=== PATIENT | female | born 1975 | race African-American/Black ===

== ENCOUNTER 2016-07-13 14:02 | Emergency (ER) | payer OTHER ==
[~2016-07-13 14:02] MED LIST: DIFLUCAN PO; FLEXERIL PO; FLEXERIL10 MG PO; LORTAB 5/500 TA1 TA1 PO; MEDROL PO; PHENERGAN PO; ULTRAM PO; VICODIN 5/500 T1 TAB PO; [UNRECOGNIZED DRUG - REMARK]
== END 2016-07-13 14:04 | disposition home or self-care (01) ==
LOC: CFTX 14:02
DX: M54.5 Low back pain (principal); Z90.49 Acquired absence of other specified parts of digestive tract; Z91.040 Latex allergy status; Z79.899 Other long term (current) drug therapy
CPT/HCPCS: 84703; 99282; 99283